=== PATIENT | female | born 1970 | race African-American/Black ===

== ENCOUNTER 2023-06-10 17:10 | Inpatient (IN) | payer OTHER ==
--- NOTE | 2023-06-10 17:18 | ED ---
Chest Pain HPI - General Source: patient, EMS, RN notes reviewed Mode of arrival: EMS Limitations: no limitations - History of Present Illness MD Complaint: chest pain <Ester Hubbard - Last Filed: 06/10/23 17:15> <Hemant Abarca - Last Filed: 06/10/23 22:32> - General Chief Complaint: Chest Pain Stated Complaint: Chest Pain,Headache Time Seen by Provider: 06/10/23 17:15 - History of Present Illness Initial Comments: This is a 53-year-old female who presents to the emergency department for chest pain and headaches. States that this began yesterday and the chest pain is described as sharp. Patient attempted to check into [facility], however per EMS, they would not accept her because she is blind and wheelchair-bound. Patient states that she was discharged from [facility] recently for the chest pain and headaches, and her workup was found to be normal. EMS states that she is essentially homeless and believes that she is making up excuses/complaints due to her situation. (Ester Hubbard) Dictation was produced using [employer] dictation software. please excuse any grammatical, word or spelling errors. Chief Complaint: 53-year-old female presents to the ER for chest pain History of Present Illness: Patient is a 53-year-old female she has history of heart attack, hypertension and alcoholism. She was try to check in at [facility] however they would not accept her because she is blind and having chest pain and shortness of breath. Patient states she is a alcoholic. She has history of hypertension and alcohol abuse. States she is has a history of small heart attack. States that she has chest pain to the substernal left anterior chest radiates down the extremity associated with vomiting. No nausea. Patient denies any pain at this time. She does also report associated shortness of breath. The ROS documented in this emergency department record has been reviewed and confirmed by me. Those systems with pertinent positive or negative responses have been documented in the HPI. All other systems are other negative and/or noncontributory. (Hemant Abarca) - Related Data Allergies Allergy/AdvReac Type Severity Reaction Status Date / Time aspirin Allergy Rash/Hives Verified 06/10/23 17:40 ibuprofen Allergy Rash/Hives Verified 06/10/23 17:40 Review of Systems ROS Other: All systems not noted in ROS Statement are negative. <Ester Hubbard - Last Filed: 06/10/23 17:15> ROS Other: All systems not noted in ROS Statement are negative. <Hemant Abarca - Last Filed: 06/10/23 22:32> ROS Statement: Those systems with pertinent positive or pertinent negative responses have been documented in the HPI. General Exam <Ester Hubbard - Last Filed: 06/10/23 17:15> <Hemant Abarca - Last Filed: 06/10/23 22:32> - General Exam Comments Initial Comments: Visual Physical Exam Vital signs reviewed General: Well-appearing, nontoxic, no acute distress. Head: Normocephalic, atraumatic Eyes: PERRLA, EOMI ENT: Airway patent Chest: Nonlabored breathing Skin: No visual rash, normal skin tone Neuro: Alert and oriented 3 Musculoskeletal: No gross abnormalities (Ester Hubbard) PHYSICAL EXAM: General Impression: Alert and oriented x3, not in acute distress HEENT: Normocephalic atraumatic, extra-ocular movements intact, pupils equal and reactive to light bilaterally, mucous membranes moist. Cardiovascular: Heart regular rate and rhythm Chest: Able to complete full sentences, no retractions, no tachypnea Abdomen: abdomen soft, non-tender, non-distended, no organomegaly Musculoskeletal: Pulses present and equal in all extremities, no peripheral edema Motor: no focal deficits noted Neurological: CN II-XII grossly intact, no focal motor or sensory deficits noted Skin: Intact with no visualized rashes Psych: Normal affect and mood (Hemant Abarca) Course Vital Signs 06/10/23 17:37 Temperature 98.4 F Pulse Rate 97 Respiratory 22 Rate Blood Pressure 160/123 O2 Sat by Pulse 99 Oximetry Chest Pain MDM <Ester Hubbard - Last Filed: 06/10/23 17:15> <Hemant Abarca - Last Filed: 06/10/23 22:32> - MDM I performed the QuickNote portion of this chart. Signed Ester Hubbard PA-C. (Ester Hubbard) Was pt. sent in by a medical professional or institution (JOSSUE Anne, DIRECTOR OF LEARNING, urgent care, hospital, or longterm...) When possible be specific @ -No Did you speak to anyone other than the patient for history (EMS, parent, family, police, friend...)? What history was obtained from this source @ -No Did you review nursing and triage notes (agree or disagree)? Why? @ -I reviewed and agree with nursing and triage notes Were old charts reviewed (outside hosp., previous admission, EMS record, old EKG, old radiological studies, urgent care reports/EKG's, longterm records)? Report findings @ -No old charts were reviewed Differential Diagnosis (chest pain, altered mental status, abdominal pain women, abdominal pain men, vaginal bleeding, musculoskeletal, weakness, fever, dyspnea, syncope, headache, dizziness, GI bleed, back pain, seizure, CVA, palpatations, mental health)? @ -Differential Chest Pain: Stable Angina, Unstable Angina, STEMI, NSTEMI Aortic Dissection, Pneumothorax, Musculoskeletal, Esophageal Spasm GERD, Cholecystitis, Pancreatitis, Zoster, this is not meant to be an all-inclusive list. EKG interpreted by me (3pts min.). @ -My EKG interpretation: Ventricular rate 74, sinus rhythm,. 123, cures 80, QTc 373. No OH prolongation, no QTC prolongation, no ST or T-wave changes noted. Overall, this EKG is unremarkable X-rays interpreted by me (1pt min.). @ -Chest x-ray shows no acute processes CT interpreted by me (1pt min.). @ -None done U/S interpreted by me (1pt. min.). @ -None done What testing was considered but not performed or refused? (CT, X-rays, U/S, labs)? Why? @ -None What meds were considered but not given or refused? Why? @ -None Did you discuss the management of the patient with other professionals (professionals i.e. JOSSUE Anne, DIRECTOR OF LEARNING, lab, RT, psych nurse, rn social work, licensing court magistrate, teacher, child support case officer, supportive employment case manager)? Give summary @ -Case discussed with Dr. Morley for observation admission Was smoking cessation discussed for >3mins.? @ -No Was critical care preformed (if so, how long)? @ -No Were there social determinants of health that impacted care today? How? (Homelessness, low income, unemployed, alcoholism, drug addiction, transportation, low edu. Level, literacy, decrease access to med. care, halfway, rehab)? @ -No Was there de-escalation of care discussed even if they declined (Discuss DNR or withdrawal of care, Hospice)? DNR status @ -No What co-morbidities impacted this encounter? (DM, HTN, Smoking, COPD, CAD, Cancer, CVA, ARF, Chemo, Hep., AIDS, mental health diagnosis, sleep apnea, morbid obesity)? @ -None Was patient admitted / discharged? Hospital course, mention meds given and route, prescriptions, significant lab abnormalities, going to OR and other pertinent info. @ -53-year-old female presents emergency department for atypical chest pain typical features. Vital signs upon arrival are within acceptable limits. EKG is unremarkable for ischemia or infarction. Troponins negative. Rest of labs within acceptable limits. Patient considered high risk due to reported history of heart attacks. Patient agreeable to observation admission. Undiagnosed new problem with uncertain prognosis? @ -No Drug Therapy requiring intensive monitoring for toxicity (Heparin, Nitro, Insulin, Cardizem)? @ -No Were any procedures done? @ -No Diagnosis/symptom? Acute, or Chronic, or Acute on Chronic? Uncomplicated (without systemic symptoms) or Complicated (systemic symptoms)? @ -Chest pain Side effects of treatment? @ -No Exacerbation, Progression, or Severe Exacerbation? @ -No Poses a threat to life or bodily function? How? (Chest pain, [place], [place], pneumonia, PE, COPD, DKA, ARF, appy, cholecystitis, CVA, Diverticulitis, Homicidal, Suicidal, threat to staff... and all critical care pts) @ -yes (Hemant Abarca) Disposition <Ester Hubbard - Last Filed: 06/10/23 17:15> Decision Time: 22:32 <Hemant Abarca - Last Filed: 06/10/23 22:32> Clinical Impression: Chest pain Disposition[facility] Condition: Fair Referrals: Nonstaff,Physician [Primary Care Provider] - 1-2 days
[2023-06-10 19:55] LABS: Basophils % (A) 0 %; Eosinophils # (A) 0.2 k/uL (0-0.7); Eosinophils % (A) 2 %; HCT 45.5 % (34.0-46.0); HGB 14.7 gm/dL (11.4-16.0); Lymphocytes # (A) 1.2 k/uL (1.0-4.8); Lymphocytes % (A) 14 %; MCH 29.9 pg (25.0-35.0); MCHC 32.4 g/dL (31.0-37.0); MCV 92.4 fL (80.0-100.0); Mean Platelet Volume 9.5; Monocytes # (A) 0.4 k/uL (0-1.0); Monocytes % (A) 5 %; Neutrophils # (A) 6.7 k/uL (1.3-7.7); Neutrophils % (A) 77 %; Platelet Count 245 k/uL (150-450); RBC 4.92 m/uL (3.80-5.40); RDW 13.8 % (11.5-15.5); WBC 8.7 k/uL (3.8-10.6)
[2023-06-10 20:08] LABS: INR 0.8 (<1.2); Partial Thromboplastin Time 25.5 sec (22.0-30.0); Prothrombin Time 9.5 sec (10.0-12.5)
[2023-06-10 20:17] LABS: ALT 35 U/L (4-34); AST 25 U/L (14-36); African American GFR (CKD) >90 (>60 ml/min/1.73 sqM); Albumin 4.5 g/dL (3.5-5.0); Alkaline Phosphatase 103 U/L (38-126); Anion Gap 12 mmol/L; Blood Urea Nitrogen 17 mg/dL (7-17); Calcium 9.9 mg/dL (8.4-10.2); Carbon Dioxide 22 mmol/L (22-30); Chloride 105 mmol/L (98-107); Glucose 165 mg/dL (74-99); Magnesium 1.7 mg/dL (1.6-2.3); Non-African American GFR(CKD) 88 (>60 ml/min/1.73 sqM); Potassium 4.4 mmol/L (3.5-5.1); Sodium 139 mmol/L (137-145); Total Bilirubin 0.3 mg/dL (0.2-1.3); Total Protein 7.6 g/dL (6.3-8.2)
[2023-06-10] MEDS ORDERED: MORPHINE SULFATE 4 MG/ML SYRINGE IV STA (22:25)
[2023-06-10] MEDS ORDERED: ONDANSETRON 4 MG/2 ML VIAL IVP STA (22:25)
[2023-06-10] MEDS: ASPIRIN 81 MG PO STA ×2 (23:12→23:26)
[2023-06-10] MEDS ORDERED: diphenhydrAMINE 25 MG CAP PO STA (23:13)
--- NOTE | 2023-06-11 01:07 | XR ---
EXAMINATION TYPE: XR chest 2V DATE OF EXAM: 06/10/2023 9:45 PM CLINICAL INDICATION:Female, 53 years old with history of Chest Pain; [facility] COMPARISON: None TECHNIQUE: XR chest 2V. Frontal and lateral views of the chest.. FINDINGS: Lines/Tubes/Devices: Multiple radiodensities seen are presumed extrinsic to the patient. No indwelling lines are seen. Heart/mediastinum: Heart size is normal. Mildly tortuous aorta with normal mediastinal contours. Pulm onary vascularity: Not increased, Lungs/Pleura: There is no evidence of pleural effusion, focal consolidation, or pneumothorax. Minimal platelike atelectasis in the left mid to lower lung zone. Musculoskeletal: No acute osseous abnormality demonstrated in the limits of the exam. Degenerative c hanges of the spine and shoulders. Other findings: None. IMPRESSION: No acute cardiopulmonary abnormality.
[2023-06-11] MEDS ORDERED: HEPARIN SODIUM 1,000 UN/ML (10ML VL) IV ONE (01:41)
[2023-06-11] MEDS ORDERED: HEPARIN SODIUM 1,000 UN/ML (10ML VL) IV PRN (01:41)
[2023-06-11] MEDS ORDERED: HEPARIN SOD,PORK IN 0.45% NACL 25,000 UNIT in 0.45% NACL 1 250ML.BAG IV SCH (01:45)
[2023-06-11 02:19] LABS: Basophils % (A) 0 %; Eosinophils # (A) 0.2 k/uL (0-0.7); Eosinophils % (A) 2 %; HCT 44.4 % (34.0-46.0); HGB 14.2 gm/dL (11.4-16.0); Lymphocytes % (A) 12 %; MCH 30.3 pg (25.0-35.0); MCHC 32.1 g/dL (31.0-37.0); MCV 94.5 fL (80.0-100.0); Monocytes # (A) 0.4 k/uL (0-1.0); Monocytes % (A) 5 %; Neutrophils # (A) 6.6 k/uL (1.3-7.7); Neutrophils % (A) 80 %; Platelet Count 242 k/uL (150-450); RDW 13.7 % (11.5-15.5); WBC 8.2 k/uL (3.8-10.6)
[2023-06-11] MEDS ORDERED: NITROGLYCERIN SL TABS 0.4 MG TAB SUBLINGUAL STA (02:20)
[2023-06-11] MEDS ORDERED: MORPHINE SULFATE 4 MG/ML SYRINGE IV STA (02:36)
[2023-06-11 02:55] LABS: INR 0.9 (<1.2); Partial Thromboplastin Time 25.2 sec (22.0-30.0); Prothrombin Time 9.8 sec (10.0-12.5)
[2023-06-11] MEDS: NICOTINE 21MG/24HR PATCH TRANSDERM SCH (06:21)
[2023-06-11] MEDS ORDERED: ACETAMINOPHEN TAB 325 MG TAB PO PRN (08:55)
[2023-06-11] MEDS ORDERED: NALOXONE 0.4 MG/ML 1 ML VIAL IVP PRN (08:55)
[2023-06-11] MEDS ORDERED: NICOTINE 21MG/24HR PATCH TRANSDERM SCH (09:00)
[2023-06-11] MEDS ORDERED: ASPIRIN 325 MG TAB PO SCH (09:00)
[2023-06-11] MEDS: SODIUM CHLORIDE 0.9% 1,000 ML IV SCH ×2 (10:32→22:03)
[2023-06-11] MEDS: MORPHINE SULFATE 2 MG/ML SYRINGE IVP PRN ×3 (10:33→21:04)
--- NOTE | 2023-06-11 10:38 | P.CRDCN ---
History of Present Illness History of present illness: HISTORY OF PRESENT ILLNESS: This is a 53-year-old female with a past medical history significant for alcohol abuse. Patient is also legally blind and wheelchair-bound. She is also appar ently homeless. Patient does not follow with a service restorer emergency. We have been asked to see the patient in consultation for chest pain. Patient examined at the bedside in the emergency room. The patient states yesterday she went to [place] and was trying to get admitted for alcohol abuse. However she was not accepted for admission for unknown reason. She was then brought to the hospital via EMS for chest pain. The patient reports she has been having occasional chest pain on and off recently. She reports that she was at [facility] recently for chest pain. She is unsure of what her workup consisted of but she states she did not have a stress test. Patient states that when she has the chest pain there is no radiation of the pain. She states the pain is worse with deep inspiration. Patient's blood pressure was elevated upon admission with a reading of 160/123. She denies any nausea or vomiting. She denies any shortness of breath. She denies any chest pain or pressure at the time of examination. She is a current smoker and smokes 1 pack/day. She also reports alcohol abuse and reports drinking a significant amount of liquor but would not quantify the amount. DIAGNOSTICS: - Initial EKG revealed sinus mechanism with no signs of acute ischemia. Repeat EKG reveals sinus mechanism with inferior lateral T wave inversions. Repeat EKG revealed sinus mechanism with resolution of T wave inversions. Fourth EKG completed revealing sinus mechanism with inferior lateral T wave inversions. - Chest xray negative for acute process - Laboratory data: WBC 8.2. Hemoglobin 14.2. Platelet count 242. Sodium 139. Potassium 4.4. BUN 17. Creatinine 0.79. Magnesium 1.7. Troponin negative x 4. - Current home cardiac medications include lisinopril 10 mg daily REVIEW OF SYSTEMS: At the time of my exam: CONSTITUTIONAL: Denies fever or chills. HEENT: Denies blurred vision, vision changes, or eye pain. Denies hemoptysis CARDIOVASCULAR: Denies chest pain. Denies orthopnea. Denies PND. Denies palpitations RESPIRATORY: Denies shortness of breath. GASTROINTESTINAL: Denies abdominal pain. Denies nausea or vomiting. HEMATOLOGIC: Denies bleeding disorders. GENITOURINARY: Denies any blood in urine. SKIN: Denies pruitis. Denies rash. PHYSICAL EXAM: VITAL SIGNS: Reviewed. GENERAL: Well-developed in no acute distress. HEENT: Head is normocephalic. Pupils are equal, round. Sclerae anicteric. Mucous membranes of the mouth are moist. Neck supple. No JVD or thyromegaly LUNGS: Respirations even and unlabored. Lungs essentially clear to auscultation bilaterally. HEART: Regular rate and rhythm. S1 and S2 heard. ABDOMEN: Soft. Nondistended. Nontender. EXTREMITIES: Normal range of motion. No clubbing or cyanosis. Peripheral pulses intact. No lower extremity edema NEUROLOGIC: Awake and alert. Oriented x 3. ASSESSMENT: Chest pain, troponin negative x 4 History of alcohol abuse Legally blind Chronic debility, patient wheelchair-bound Nicotine dependence History of bipolar disorder History of schizophrenia PLAN: An acute coronary event has been ruled out Obtain 2D echo to assess cardiac structure and function Obtain records from recent hospitalization at [facility] Abstinence from alcohol recommended Smoking cessation encouraged Further recommendations pending patient course Nurse practitioner note has been reviewed by physician. Signing provider agrees with the documented findings, assessment, and plan of care documented by CHASSIS ENGINEER as a scribe. Past Medical History Past Medical History: Hypertension Additional Past Medical History / Comment(s): Blind History of Any Multi-Drug Resistant Organisms: None Reported Past Surgical History: No Surgical Hx Reported Past Psychological History: Bipolar, Schizophrenia Smoking Status: Current every day smoker Past Alcohol Use History: Daily Past Drug Use History: None Reported Medications and Allergies Home Medications Medication Instructions Recorded Confirmed Type Acetaminophen Tab [Tylenol] 5 mg PO QID PRN 06/11/23 06/11/23 History Albuterol Sulfate [Ventolin HFA] 1 - 2 puff INHALATION RT-Q6H PRN 06/11/23 06/11/23 History Buta/APAP/Caf/Cod 33-321-95-30 1 cap PO QID PRN 06/11/23 06/11/23 History [Fioricet w/Cod 13-274-51-30MG] Cyclobenzaprine [Flexeril] 10 mg PO BID PRN 06/11/23 06/11/23 History Ergocalciferol [Vitamin D2 (1250 1,250 mcg PO Q7D 06/11/23 06/11/23 History Mcg = 31193 Iu)] Fluticasone Nasal [place] [Flonase 2 spray EA NOSTRIL DAILY 06/11/23 06/11/23 History Nasal [place]] HYDROcodone/APAP 5-325MG [[place] 1 tab PO BID PRN 06/11/23 06/11/23 History 5-325] lisinopriL [Zestril] 10 mg PO DAILY 06/11/23 06/11/23 History Allergies Allergy/AdvReac Type Severity Reaction Status Date / Time aspirin Allergy Rash/Hives Verified 06/10/23 17:40 ibuprofen Allergy Rash/Hives Verified 06/10/23 17:40 Physical Exam Vitals: Vital Signs Temp Pulse Resp BP Pulse Ox 06/11/23 06:12 72 18 105/72 95 06/11/23 05:17 74 16 102/81 96 06/11/23 04:00 100 16 91/73 97 06/11/23 03:28 83 20 104/83 97 06/11/23 02:30 75 16 113/81 96 06/11/23 01:41 73 20 124/87 97 06/11/23 00:37 87 06/10/23 22:33 76 20 133/90 06/10/23 17:37 98.4 F 97 22 160/123 99 Intake and Output 06/10/23 06/11/23 06/11/23 22:59 06:59 14:59 Other: Weight 90.718 kg Results 06/11/23 01:57 06/10/23 17:41 Cardiac Enzymes 06/10/23 06/10/23 06/10/23 Range/Units 17:41 17:41 23:00 AST 25 (14-36) U/L Troponin I <0.012 <0.012 (0.000-0.034) ng/mL 06/11/23 06/11/23 Range/Units 01:57 03:15 AST (14-36) U/L Troponin I <0.012 <0.012 (0.000-0.034) ng/mL Coagulation 06/10/23 06/11/23 Range/Units 17:41 01:57 PT 9.5 L 9.8 L (10.0-12.5) sec APTT 25.5 25.2 (22.0-30.0) sec CBC 06/10/23 06/11/23 Range/Units 17:41 01:57 WBC 8.7 8.2 (3.8-10.6) k/uL RBC 4.92 4.70 (3.80-5.40) m/uL Hgb 14.7 14.2 (11.4-16.0) gm/dL Hct 45.5 44.4 (34.0-46.0) % Plt Count 245 242 (150-450) k/uL Comprehensive Metabolic Panel 06/10/23 Range/Units 17:41 Sodium 139 (137-145) mmol/L Potassium 4.4 (3.5-5.1) mmol/L Chloride 105 (98-107) mmol/L Carbon Dioxide 22 (22-30) mmol/L BUN 17 (7-17) mg/dL Creatinine 0.79 (0.52-1.04) mg/dL Glucose 165 H (74-99) mg/dL Calcium 9.9 (8.4-10.2) mg/dL AST 25 (14-36) U/L ALT 35 H (4-34) U/L Alkaline Phosphatase 103 (38-126) U/L Total Protein 7.6 (6.3-8.2) g/dL Albumin 4.5 (3.5-5.0) g/dL Current Medications Generic Name Dose Route Start Last Admin Trade Name Freq PRN Reason Stop Dose Admin Acetaminophen 650 mg 06/11/23 08:55 Acetaminophen Tab 325 Mg Tab PO Q6HR PRN Mild Pain or Fever > 100.5 Hydrocodone Bitart/Acetaminophen 1 each 06/11/23 08:55 Hydrocodone/Apap 5-325mg 1 Each Tab PO Q4HR PRN Moderate Pain (Scale 4 to 6) Aspirin 325 mg 06/11/23 09:00 Aspirin 325 Mg Tab PO DAILY TERE Heparin Sodium (Porcine) 0 unit 06/11/23 01:41 Heparin Sodium 1,000 Un/Ml (10ml Vl) IV PER PROTOCOL PRN Low PTT Protocol Heparin Sodium/Sodium Chloride 250 mls @ 10.006 mls/hr 06/11/23 01:45 06/11/23 02:05 25,000 unit/ Sodium Chloride IV 11.03 units/kg/hr .Q24H TERE 10.006 mls/hr Administration Protocol 11.03 UNITS/KG/HR Sodium Chloride 1,000 mls @ 75 mls/hr 06/11/23 09:00 Saline 0.9% IV .[id number] TERE Morphine Sulfate 2 mg 06/11/23 08:56 Morphine Sulfate 2 Mg/Ml Syringe IVP Q4HR PRN Pain/Discomfort Naloxone HCl 0.2 mg 06/11/23 08:55 Naloxone 0.4 Mg/Ml 1 Ml Vial IVP Q2M PRN Opioid Reversal Nicotine 1 patch 06/11/23 06:20 06/11/23 06:21 Nicotine 21mg/24hr Patch TRANSDERM 1 patch DAILY TERE Administration Ondansetron HCl 4 mg 06/11/23 08:55 Ondansetron 4 Mg/2 Ml Vial IVP Q8HR PRN Nausea And Vomiting Intake and Output 06/10/23 06/11/23 06/11/23 22:59 06:59 14:59 Other: Weight 90.718 kg 06/11/23 01:57 06/10/23 17:41
[2023-06-11] MEDS ORDERED: THIAMINE 100 MG/ML 2 ML VIAL IM STA (12:45)
[2023-06-11] MEDS ORDERED: chlordiazePOXIDE 25 MG CAP PO PRN (12:45)
[2023-06-11] MEDS ORDERED: LORazepam 1 MG TAB PO PRN ×2 (12:45)
[2023-06-11] MEDS ORDERED: ALBUTEROL NEBULIZED 2.5 MG/3 ML INHALATION PRN (12:48)
[2023-06-11] MEDS ORDERED: BUTA/APAP/CAF/COD 50-325-40-30 CAP PO PRN (12:48)
[2023-06-11] MEDS ORDERED: CYCLOBENZAPRINE 10 MG TAB PO PRN (12:48)
--- NOTE | 2023-06-11 12:49 | P.HPIM ---
History of Present Illness H&P Date: 06/11/23 Chief Complaint: Chest pain * 53-year-old patient with past medical history significant for hypertension, controlled emergency department with complaints of chest pain. Patient has history of alcohol use and was trying to get checked in [facility] however patient was not excepted there. Upon admission patient mentioned that she had been recently at another hospital with complaints of chest pain and had a workup done which was normal. Per chart review, patient essentially homeless. * Patient does have history of alcohol use patient states she had last drink about 48 hours prior to presentation * Workup initiated ER included EKG which showed sinus rhythm, nonspecific ST segment changes were noted * Blood work obtained in ER included CBC which was essentially normal, INR 0.8 * Serum chemistry obtained showed sodium of 139 potassium 4.4 BUN 17 creatinine 0.79 glucose 165 * ALT of 35, AST of 25 troponin within normal limits * Patient to be admitted with consultation for cardiology to rule out ACS REVIEW OF SYSTEMS: Chest pain CONSTITUTIONAL: No fever, no malaise, no fatigue. HEENT: No recent visual problems or hearing problems. Denied any sore throat. CARDIOVASCULAR: No chest pain, orthopnea, PND, no palpitations, no syncope. PULMONARY: No shortness of breath, no cough, no hemoptysis. GASTROINTESTINAL: No diarrhea, no nausea, no vomiting, no abdominal pain. NEUROLOGICAL: No headaches, no weakness, no numbness. HEMATOLOGICAL: Denies any bleeding or petechiae. GENITOURINARY: Denies any burning micturition, frequency, or urgency. MUSCULOSKELETAL/RHEUMATOLOGICAL: Denies any joint pain, swelling, or any muscle pain. ENDOCRINE: Denies any polyuria or polydipsia. PHYSICAL EXAMINATION: GENERAL: The patient is alert and oriented x3, not in any acute distress. Well developed, well nourished. HEENT: legally blind No scleral icterus. CARDIOVASCULAR: S1 and S2 present. No murmurs, rubs, or gallops. PULMONARY: Chest is clear to auscultation, no wheezing or crackles. ABDOMEN: Soft, nontender, nondistended, normoactive bowel sounds. No palpable organomegaly. MUSCULOSKELETAL: No joint swelling or deformity. EXTREMITIES: No cyanosis, clubbing, or pedal edema. NEUROLOGICAL: Gross neurological examination did not reveal any focal deficits. SKIN: No rashes. Past Medical History Past Medical History: Hypertension Additional Past Medical History / Comment(s): Blind History of Any Multi-Drug Resistant Organisms: None Reported Past Surgical History: No Surgical Hx Reported Past Psychological History: Bipolar, Schizophrenia Smoking Status: Current every day smoker Past Alcohol Use History: Daily Past Drug Use History: None Reported Medications and Allergies Home Medications Medication Instructions Recorded Confirmed Type Acetaminophen Tab [Tylenol] 5 mg PO QID PRN 06/11/23 06/11/23 History Albuterol Sulfate [Ventolin HFA] 1 - 2 puff INHALATION RT-Q6H PRN 06/11/23 06/11/23 History Buta/APAP/Caf/Cod 54-233-86-30 1 cap PO QID PRN 06/11/23 06/11/23 History [Fioricet w/Cod 56-294-31-30MG] Cyclobenzaprine [Flexeril] 10 mg PO BID PRN 06/11/23 06/11/23 History Ergocalciferol [Vitamin D2 (1250 1,250 mcg PO Q7D 06/11/23 06/11/23 History Mcg = 62748 Iu)] Fluticasone Nasal [place] [Flonase 2 spray EA NOSTRIL DAILY 06/11/23 06/11/23 History Nasal [place]] HYDROcodone/APAP 5-325MG [[place] 1 tab PO BID PRN 06/11/23 06/11/23 History 5-325] lisinopriL [Zestril] 10 mg PO DAILY 06/11/23 06/11/23 History Allergies Allergy/AdvReac Type Severity Reaction Status Date / Time aspirin Allergy Rash/Hives Verified 06/10/23 17:40 ibuprofen Allergy Rash/Hives Verified 06/10/23 17:40 Physical Exam Vitals: Vital Signs Temp Pulse Resp BP Pulse Ox 06/11/23 06:12 72 18 105/72 95 06/11/23 05:17 74 16 102/81 96 06/11/23 04:00 100 16 91/73 97 06/11/23 03:28 83 20 104/83 97 06/11/23 02:30 75 16 113/81 96 06/11/23 01:41 73 20 124/87 97 06/11/23 00:37 87 06/10/23 22:33 76 20 133/90 06/10/23 17:37 98.4 F 97 22 160/123 99 Intake and Output 06/10/23 06/11/23 06/11/23 22:59 06:59 14:59 Other: Weight 90.718 kg Results CBC & Chem 7: 06/11/23 01:57 06/10/23 17:41 Labs: Abnormal Lab Results - Last 24 Hours (Table) 06/10/23 06/10/23 06/11/23 Range/Units 17:41 17:41 01:57 PT 9.5 L 9.8 L (10.0-12.5) sec Glucose 165 H (74-99) mg/dL ALT 35 H (4-34) U/L Assessment and Plan Assessment: Assessment and plan * Chest pain rule out acute coronary syndrome * Hypertension * Alcohol use disorder * History of bipolar disorder * Legally blind * In regards to chest pain, serial troponins ordered, sublingual nitroglycerin for chest pain, cardiology consulted * In regards to history of hypertension, continue lisinopril * In regards to history of alcohol use disorder continue withdrawal protocol Ativan as needed * Appreciate input from cardiology, social work/case management consulted * CODE STATUS is full code Time with Patient: Greater than 30
[2023-06-11] MEDS: MULTIVITAMINS, THERA 1 EACH TAB PO SCH (13:43)
[2023-06-11 13:44] LABS: Chol/HDL Ratio 3.42 Ratio; LDL Cholesterol,Calculated 72.5 mg/dL (0.0-131.0)
[2023-06-11] MEDS: ONDANSETRON 4 MG/2 ML VIAL IVP PRN (18:46)
[2023-06-11] MEDS ORDERED: ATORVASTATIN 20 MG TAB PO SCH (21:00)
[2023-06-12] MEDS: MORPHINE SULFATE 2 MG/ML SYRINGE IVP PRN ×5 (02:25→21:33)
[2023-06-12] MEDS: MULTIVITAMINS, THERA 1 EACH TAB PO SCH (08:02)
[2023-06-12] MEDS: NICOTINE 21MG/24HR PATCH TRANSDERM SCH (08:03)
[2023-06-12] MEDS: lisinopriL 10 MG TAB PO SCH (08:03)
[2023-06-12] MEDS: ENOXAPARIN 40 MG/0.4 ML SYRINGE SQ SCH (08:03)
[2023-06-12] MEDS: FLUTICASONE 50MCG/SPRAY NASAL 16GM EA NOSTRIL SCH (08:03)
[2023-06-12] MEDS: THIAMINE 100 MG TAB PO SCH (08:03)
--- NOTE | 2023-06-12 09:05 | CA ---
Transthoracic Echo Report Name: Vonnie Chand Age: 53 Gender: F : 1970 Exam Date: 06/11/2023 11:18 Exam Location: [facility] Ht (in): 63 Wt (lb): 200 Ordering Physician: Letitia Bee Attending/Referring Phys: [id number], Cristal Case Investigator Palak Phillip RDCS Procedure CPT: Indications: LV function Cardiac Hx: Technical Quality: Fair Contrast 1: Total Dose (mL): Contrast 2: Total Dose (mL): MEASUREMENTS (Male / Female) Normal Values 2D ECHO LV Diastolic Diameter PLAX 5.0 cm 4.2 - 5.9 / 3.9 - 5.3 cm LV Systolic Diameter PLAX 3.5 cm IVS Diastolic Thickness 1.1 cm 0.6 - 1.0 / 0.6 - 0.9 cm LVPW Diastolic Thickness 1.1 cm 0.6 - 1.0 / 0.6 - 0.9 cm LV Relative Wall Thickness 0.5 RV Internal Dim ED PLAX 3.0 cm LA Systolic Diameter LX 2.8 cm 3.0 - 4.0 / 2.7 - 3.8 cm LV Diastolic Volume MOD 4C 106.6 cm??? LV Systolic Volume MOD 4C 57.1 cm??? LV Ejection Fraction MOD 4C 46.4 % LV Cardiac Index MOD 4C 1762.6 cm???/min???m??? LV Diastolic Length 4C 8.0 cm LV Systolic Length 4C 6.9 cm LV Diastolic Volume MOD 2C 82.1 cm??? LV Systolic Volume MOD 2C 42.7 cm??? LV Ejection Fraction MOD 2C 48.0 % LV Cardiac Index MOD 2C 1404.9 cm???/min???m??? LV Diastolic Length 2C 7.7 cm LV Systolic Length 2C 6.4 cm LA Volume 37.0 cm??? 18 - 58 / 22 - 52 cm??? LA Volume Index 18.0 cm???/m??? 16 - 28 cm???/m??? M-MODE Aortic Root Diameter MM 3.0 cm MV E Point Septal Separation 0.8 cm AV Cusp Separation MM 2.1 cm DOPPLER AV Peak Velocity 157.1 cm/s AV Peak Gradient 9.9 mmHg MV Area PHT 2.3 cm??? Mitral E Point Velocity 73.9 cm/s Mitral A Point Velocity 86.3 cm/s Mitral E to A Ratio 0.9 MV Deceleration Time 329.8 ms MV E' Velocity 6.3 cm/s Mitral E to MV E' Ratio 11.8 TR Peak Velocity 265.4 cm/s TR Peak Gradient 28.2 mmHg Right Ventricular Systolic Press 32.4 mmHg FINDINGS Left Ventricle Left ventricular ejection fraction is estimated at 50-55 %. Left ventricular cavity size normal. Moderate concentric LVH. No obvious regional wall motion abnormality Right Ventricle Normal right ventricular size. Right ventricular systolic pressure within normal limits. Right Atrium Normal right atrial size. Left Atrium Normal left atrial size. Mitral Valve Structurally normal mitral valve. No mitral stenosis, regurgitation or prolapse. Aortic Valve Trileaflet aortic valve. No aortic valve stenosis or regurgitation. Tricuspid Valve Structurally normal tricuspid valve. Mild tricuspid regurgitation. Pulmonic Valve Pulmonic valve not well visualized. No pulmonic regurgitation. Pericardium No pericardial effusion. Aorta Normal size aortic root and proximal ascending aorta. CONCLUSIONS Left ventricular ejection fraction is estimated at 50-55 %. Moderate concentric LVH. No obvious regional wall motion abnormality. Right ventricular systolic pressure within normal limits. No significant valvular dysfunction No pericardial effusion Previewed by: Dr Philip Ratliff (Electronically Signed) Final Date: 12 June 2023 09:04
[2023-06-12] MEDS: ASPIRIN 81 MG PO SCH (10:05)
--- NOTE | 2023-06-12 10:10 | P.PN ---
Subjective HISTORY OF PRESENT ILLNESS: This is a 53-year-old female with a past medical history significant for alcohol abuse. Patient is also legally blind and wheelchair-bound. She is also apparently homeless. Patient does not follow with a ekg monitor. We have been asked to see the patient in consultation for chest pain. Patient examined at the bedside in the emergency room. The patient states yesterday she went to [place] and was trying to get admitted for alcohol abuse. However she was not accepted for admission for unknown reason. She was then brought to the hospital via EMS for chest pain. The patient reports she has been having occasional chest pain on and off recently. She reports that she was at [facility] recently for chest pain. She is unsure of what her workup consisted of but she states she did not have a stress test. Patient states that when she has the chest pain there is no radiation of the pain. She states the pain is worse with deep inspiration. Patient's blood pressure was elevated upon admission with a reading of 160/123. She denies any nausea or vomiting. She denies any shortness of breath. She denies any chest pain or pressure at the time of examination. She is a current smoker and smokes 1 pack/day. She also reports alcohol abuse and reports drinking a significant amount of liquor but would not quantify the amount. DIAGNOSTICS: - Initial EKG revealed sinus mechanism with no signs of acute ischemia. Repeat EKG reveals sinus mechanism with inferior lateral T wave inversions. Repeat EKG revealed sinus mechanism with resolution of T wave inversions. Fourth EKG completed revealing sinus mechanism with inferior lateral T wave inversions. - Chest xray negative for acute process - Laboratory data: WBC 8.2. Hemoglobin 14.2. Platelet count 242. Sodium 139. Potassium 4.4. BUN 17. Creatinine 0.79. Magnesium 1.7. Troponin negative x 4. - Current home cardiac medications include lisinopril 10 mg daily June 12, 2023 Patient examined this morning at the bedside. Patient currently denies shortness of breath. She reports chest discomfort although improved from . She states the pain is worse with deep inspiration. She reports pain on both sides of her chest but states it is worse on the left side and feels like someone is poking her. She states the pain is worse when she lays down and improves when she sits up. Echocardiogram performed revealing EF 50 to 55%, moderate concentric LVH, no obvious regional wall motion abnormality, no significant valvular dysfunction and no pericardial effusion. PHYSICAL EXAM: VITAL SIGNS: Reviewed. GENERAL: Well-developed in no acute distress. HEENT: Head is normocephalic. Pupils are equal, round. Sclerae anicteric. Mucous membranes of the mouth are moist. Neck supple. No JVD or thyromegaly LUNGS: Respirations even and unlabored. Lungs essentially clear to auscultation bilaterally. HEART: Regular rate and rhythm. S1 and S2 heard. ABDOMEN: Soft. Nondistended. Nontender. EXTREMITIES: Normal range of motion. No clubbing or cyanosis. Peripheral pulses intact. No lower extremity edema NEUROLOGIC: Awake and alert. Oriented x 3. ASSESSMENT: Chest pain, troponin negative x 4 History of alcohol abuse Legally blind Chronic debility, patient wheelchair-bound Nicotine dependence History of bipolar disorder History of schizophrenia PLAN: An acute coronary event has been ruled out [place] [facility] [place] morning Obtain CRP and ESR Possible dobutamine stress test tomorrow pending review of [place] [facility] [place] Abstinence from alcohol recommended Smoking cessation encouraged Further recommendations pending patient course Nurse practitioner note has been reviewed by physician. Signing provider agrees with the documented findings, assessment, and plan of care documented by BRIDAL STYLIST SALES CONSULTANT as a scribe. Objective - Vital Signs Vital signs: Vital Signs Temp 97.4 F L 06/12/23 07:00 Pulse 62 06/12/23 07:00 Resp 21 06/12/23 07:00 BP 121/83 06/12/23 07:00 Pulse Ox 100 06/12/23 07:00 FiO2 Intake & Output 06/11/23 06/12/23 06/12/23 18:59 06:59 18:59 Weight 90.718 kg Other: Voiding Method Toilet # Voids 2 - Labs CBC & Chem 7: 06/11/23 01:57 06/10/23 17:41 Labs: Abnormal Lab Results - Last 24 Hours (Table) 06/11/23 Range/Units 08:40 Triglycerides 232.00 H (0.00-149.00) mg/dL VLDL Cholesterol, Calc 46.40 H (5.00-40.00) mg/dL
[2023-06-12] MEDS: ONDANSETRON 4 MG/2 ML VIAL IVP PRN ×2 (12:19→21:33)
--- NOTE | 2023-06-12 12:46 | P.PN ---
Subjective Progress Note Date: 06/12/23 * 53-year-old patient with past medical history significant for hypertension, controlled emergency department with complaints of chest pain. Patient has history of alcohol use and was trying to get checked in [place] however patient was not excepted there. Upon admission patient mentioned that she had been recently at another hospital with complaints of chest pain and had a workup done which was normal. Per chart review, patient essentially homeless. * Patient does have history of alcohol use patient states she had last drink about 48 hours prior to presentation * Workup initiated ER included EKG which showed sinus rhythm, nonspecific ST segment changes were noted * Blood work obtained in ER included CBC which was essentially normal, INR 0.8 * Serum chemistry obtained showed sodium of 139 potassium 4.4 BUN 17 creatinine 0.79 glucose 165 * ALT of 35, AST of 25 troponin within normal limits * Patient to be admitted with consultation for cardiology to rule out ACS * 06/12/2023: Patient seen and evaluated bedside, patient remains chest pain- free, cardiology evaluated patient planning stress test, CRP 2.2, significant dyslipidemia noted troponin within normal limits REVIEW OF SYSTEMS: Chest pain resolved CONSTITUTIONAL: No fever, no malaise, no fatigue. HEENT: No recent visual problems or hearing problems. Denied any sore throat. CARDIOVASCULAR: No chest pain, orthopnea, PND, no palpitations, no syncope. PULMONARY: No shortness of breath, no cough, no hemoptysis. GASTROINTESTINAL: No diarrhea, no nausea, no vomiting, no abdominal pain. NEUROLOGICAL: No headaches, no weakness, no numbness. HEMATOLOGICAL: Denies any bleeding or petechiae. GENITOURINARY: Denies any burning micturition, frequency, or urgency. MUSCULOSKELETAL/RHEUMATOLOGICAL: Denies any joint pain, swelling, or any muscle pain. ENDOCRINE: Denies any polyuria or polydipsia. PHYSICAL EXAMINATION: GENERAL: The patient is alert and oriented x3, not in any acute distress. Well developed, well nourished. HEENT: legally blind No scleral icterus. CARDIOVASCULAR: S1 and S2 present. No murmurs, rubs, or gallops. PULMONARY: Chest is clear to auscultation, no wheezing or crackles. ABDOMEN: Soft, nontender, nondistended, normoactive bowel sounds. No palpable organomegaly. MUSCULOSKELETAL: No joint swelling or deformity. EXTREMITIES: No cyanosis, clubbing, or pedal edema. NEUROLOGICAL: Gross neurological examination did not reveal any focal deficits. SKIN: No rashes. Objective - Vital Signs Vital signs: Vital Signs Temp 97.4 F L 06/12/23 07:00 Pulse 62 06/12/23 07:00 Resp 21 06/12/23 07:00 BP 121/83 06/12/23 07:00 Pulse Ox 100 06/12/23 07:00 FiO2 Intake & Output 06/11/23 06/12/23 06/12/23 18:59 06:59 18:59 Intake Total 618 Balance 618 Weight 90.718 kg Intake: Oral 618 Other: Voiding Method Toilet # Voids 2 - Labs CBC & Chem 7: 06/11/23 01:57 06/10/23 17:41 Labs: Abnormal Lab Results - Last 24 Hours (Table) 06/11/23 06/12/23 Range/Units 08:40 09:18 C-Reactive Protein 2.2 H (<1.0) mg/dL Triglycerides 232.00 H (0.00-149.00) mg/dL VLDL Cholesterol, Calc 46.40 H (5.00-40.00) mg/dL Assessment and Plan Assessment: Assessment and plan * Chest pain rule out acute coronary syndrome * Hypertension * Alcohol use disorder * History of bipolar disorder * Legally blind * In regards to chest pain, serial troponins negative, sublingual nitroglycerin for chest pain, cardiology consulted * In regards to history of hypertension, continue lisinopril * In regards to history of alcohol use disorder continue withdrawal protocol Ativan as needed * Appreciate input from cardiology, social work/case management consulted * CODE STATUS is full code
[2023-06-12] MEDS: SODIUM CHLORIDE 0.9% 1,000 ML IV SCH (14:05)
[2023-06-12] MEDS: ATORVASTATIN 40 MG TAB PO SCH (20:25)
[2023-06-13] MEDS: MORPHINE SULFATE 2 MG/ML SYRINGE IVP PRN ×5 (01:53→20:33)
[2023-06-13] MEDS ORDERED: DOBUTamine DRIP for NUC MED 500 MG in DEXTROSE/WATER 1 250ML.BAG IV PRN (06:00)
[2023-06-13] MEDS: SODIUM CHLORIDE 0.9% 1,000 ML IV SCH ×2 (06:01→16:40)
[2023-06-13] MEDS: HYDROcodone/APAP 5-325MG 1 EACH TAB PO PRN ×2 (07:50→16:44)
[2023-06-13] MEDS: ONDANSETRON 4 MG/2 ML VIAL IVP PRN (07:51)
[2023-06-13] MEDS ORDERED: DOBUTamine DRIP for NUC MED 500 MG/250 ML BAG IV ONE (08:00)
[2023-06-13 08:56] LABS: Blood Urea Nitrogen 15.3 mg/dL (9.0-27.0); Calcium 9.2 mg/dL (8.7-10.3); Carbon Dioxide 27.1 mmol/L (21.6-31.8); Chloride 105 mmol/L (96-109); Glucose 93 mg/dL (70-110); Potassium 4.5 mmol/L (3.5-5.5); Sodium 140 mmol/L (135-145)
[2023-06-13] MEDS: FLUTICASONE 50MCG/SPRAY NASAL 16GM EA NOSTRIL SCH (08:57)
[2023-06-13] MEDS: lisinopriL 10 MG TAB PO SCH (08:58)
[2023-06-13] MEDS: THIAMINE 100 MG TAB PO SCH (08:58)
[2023-06-13] MEDS: ASPIRIN 81 MG PO SCH (08:58)
[2023-06-13] MEDS: MULTIVITAMINS, THERA 1 EACH TAB PO SCH (08:58)
[2023-06-13] MEDS: NICOTINE 21MG/24HR PATCH TRANSDERM SCH (08:58)
[2023-06-13] MEDS: ENOXAPARIN 40 MG/0.4 ML SYRINGE SQ SCH (09:47)
--- NOTE | 2023-06-13 10:48 | P.PN ---
Subjective HISTORY OF PRESENT ILLNESS: This is a 53-year-old female with a past medical history significant for alcohol abuse. Patient is also legally blind and wheelchair-bound. She is also apparently homeless. Patient does not follow with a director of manufacturing operations. We have been asked to see the patient in consultation for chest pain. Patient examined at the bedside in the emergency room. The patient states yesterday she went to [place] and was trying to get admitted for alcohol abuse. However she was not accepted for admission for unknown reason. She was then brought to the hospital via EMS for chest pain. The patient reports she has been having occasional chest pain on and off recently. She reports that she was at [facility] recently for chest pain. She is unsure of what her workup consisted of but she states she did not have a stress test. Patient states that when she has the chest pain there is no radiation of the pain. She states the pain is worse with deep inspiration. Patient's blood pressure was elevated upon admission with a reading of 160/123. She denies any nausea or vomiting. She denies any shortness of breath. She denies any chest pain or pressure at the time of examination. She is a current smoker and smokes 1 pack/day. She also reports alcohol abuse and reports drinking a significant amount of liquor but would not quantify the amount. DIAGNOSTICS: - Initial EKG revealed sinus mechanism with no signs of acute ischemia. Repeat EKG reveals sinus mechanism with inferior lateral T wave inversions. Repeat EKG revealed sinus mechanism with resolution of T wave inversions. Fourth EKG completed revealing sinus mechanism with inferior lateral T wave inversions. - Chest xray negative for acute process - Laboratory data: WBC 8.2. Hemoglobin 14.2. Platelet count 242. Sodium 139. Potassium 4.4. BUN 17. Creatinine 0.79. Magnesium 1.7. Troponin negative x 4. - Current home cardiac medications include lisinopril 10 mg daily June 12, 2023 Patient examined this morning at the bedside. Patient currently denies shortness of breath. She reports chest discomfort although improved from . She states the pain is worse with deep inspiration. She reports pain on both sides of her chest but states it is worse on the left side and feels like someone is poking her. She states the pain is worse when she lays down and improves when she sits up. Echocardiogram performed revealing EF 50 to 55%, moderate concentric LVH, no obvious regional wall motion abnormality, no significant valvular dysfunction and no pericardial effusion. June 13, 2023 Patient examined this morning in the stress lab. Patient states that she feels " like crap" today. She reports generalized pain, chest discomfort, and a headache. She also reports feeling nauseated. Blood pressure this morning 1 39/81. ESR 14. CRP 2.2. No records were obtained from [facility] [place] as when staff called the facility there was no record of the patient on file. PHYSICAL EXAM: VITAL SIGNS: Reviewed. GENERAL: Well-developed in no acute distress. HEENT: Head is normocephalic. Pupils are equal, round. Sclerae anicteric. Mucous membranes of the mouth are moist. Neck supple. No JVD or thyromegaly LUNGS: Respirations even and unlabored. Lungs essentially clear to auscultation bilaterally. HEART: Regular rate and rhythm. S1 and S2 heard. ABDOMEN: Soft. Nondistended. Nontender. EXTREMITIES: Normal range of motion. No clubbing or cyanosis. Peripheral pulses intact. No lower extremity edema NEUROLOGIC: Awake and alert. Oriented x 3. ASSESSMENT: Chest pain, troponin negative x 4 History of alcohol abuse Legally blind Chronic debility, patient wheelchair-bound Nicotine dependence History of bipolar disorder History of schizophrenia PLAN: Continue current cardiac medications Abstinence from alcohol recommended Smoking cessation encouraged Patient to undergo dobutamine stress echo today If negative, the patient may be discharged home from a cardiac standpoint Nurse practitioner note has been reviewed by physician. Signing provider agrees with the documented findings, assessment, and plan of care documented by AIR CONDITIONING SPECIALIST as a scribe. Objective - Vital Signs Vital signs: Vital Signs Temp 98.0 F 06/13/23 07:00 Pulse 74 06/13/23 07:00 Resp 16 06/13/23 07:00 BP 139/81 06/13/23 07:00 Pulse Ox 100 06/13/23 07:00 FiO2 Intake & Output 06/12/23 06/13/23 06/13/23 18:59 06:59 18:59 Intake Total 736 650 Balance 736 650 Weight 84.5 kg Intake: Oral 736 650 Other: Voiding Method Toilet Toilet # Voids 3 3 1 - Labs CBC & Chem 7: 06/11/23 01:57 06/13/23 03:11 Labs: Abnormal Lab Results - Last 24 Hours (Table) 06/12/23 Range/Units 09:18 C-Reactive Protein 2.2 H (<1.0) mg/dL
[2023-06-13] MEDS ORDERED: PROCHLORPERAZINE INJ 10 MG/2 ML VIAL IVP STA (11:56)
--- NOTE | 2023-06-13 12:46 | CA ---
Dobutamine Stress Echocardiogram Report Vonnie Chand Age: 53 Gender: F : 1970 Exam Date: 06/13/2023 11:01 Exam Location: [facility] Ordering Physician: Letitia Bee Referring Physician: ELIEZER,, Manager Wind: Dragan Spencer Technologist: Palak Phillip RDCS Ht (in): 63 Wt (lb): 200 Procedure CPT: Indication: CP ICD-9 Codes: Rhythm: Patient History: CHEST PAIN, DIFFICULTY IN BREATHING, PALPITATIONS, HTN, ELEVATED CHOLESTEROL LEVELS, CURRENT SMOKER 0.5 PPD X 35 YEARS, PRIOR PR, COPD, ASTHMA Cardiac Medications: Medications in past 24 hours: Contrast: Total Dose (mL): Stress Results Protocol: Dobutamine Peak Dose (???g/kg/min): 40 Duration (min:sec): Atropine:(mg) Target HR: 144 Double Product: 51414 Resting HR: 63 Resting BP: 104 / 69 Peak HR: 124 Peak BP: 168 / 70 Max Predicted HR: 169 73 % Max Predicted HR Stress Summary: BP Response: Reason for Termination: DIRECTED PER WAGON DRILLER Cardiac Symptoms: NAUSEA AND VOMITING ECG Analysis Resting EKG: Normal sinus rhythm, normal axis, heart rate 64 beats a minute Stress EKG: No significant ST-T wave changes diagnostic for ischemia by ST segment analysis Arrhythmia: There are no sustained arrhythmias ectopic beats Echo Analysis Base Echo Analysis: Normal segmental and global systolic function. No obvious regional wall motion abnormality Low Echo Anaylsis: No regional wall motion abnormality at your dobutamine infusion rate. Normal augmentation and global and segmental systolic function Peak Echo Analysis: No regional wall motion abnormality at peak dobutamine infusion rate. Normal augmentation and global and segmental systolic function Recovery Echo: No regional wall motion abnormality due to recovery MEASUREMENTS (Male/Female) Normal Values CONCLUSIONS Nonischemic ECG and echocardiographic response to dobutamine infusion Normal hemodynamic response to dobutamine infusion Nausea and vomiting with dobutamine infusion. No chest pain Overall normal dobutamine echo stress test Dr Philip Ratliff (Electronically Signed) Final Date: 13 June 2023 12:45
--- NOTE | 2023-06-13 14:11 | P.DS ---
Providers Date of admission: 06/10/23 22:27 Expected date of discharge: 06/13/23 Attending physician: Melchor Arita Primary care physician: Stated None Hospital Course: * 53-year-old patient with past medical history significant for hypertension, controlled emergency department with complaints of chest pain. Patient has history of alcohol use and was trying to get checked in [place] however patient was not excepted there. Upon admission patient mentioned that she had been recently at another hospital with complaints of chest pain and had a workup done which was normal. Per chart review, patient essentially homeless. * Patient does have history of alcohol use patient states she had last drink about 48 hours prior to presentation * Workup initiated ER included EKG which showed sinus rhythm, nonspecific ST segment changes were noted * Blood work obtained in ER included CBC which was essentially normal, INR 0.8 * Serum chemistry obtained showed sodium of 139 potassium 4.4 BUN 17 creatinine 0.79 glucose 165 * ALT of 35, AST of 25 troponin within normal limits * Patient to be admitted with consultation for cardiology to rule out ACS * 06/12/2023: Patient seen and evaluated bedside, patient remains chest pain- free, cardiology evaluated patient planning stress test, CRP 2.2, significant dyslipidemia noted troponin within normal limits * 06/13/2023: Patient seen and evaluated bedside, stress test completed patient cleared for discharge by cardiology. Patient had episode of nausea given Zofran. X-ray to be completed as well. construction operations manager coordinating discharge planning. For safe planning patient need [facility]. REVIEW OF SYSTEMS: Chest pain resolved CONSTITUTIONAL: No fever, no malaise, no fatigue. HEENT: No recent visual problems or hearing problems. Denied any sore throat. CARDIOVASCULAR: No chest pain, orthopnea, PND, no palpitations, no syncope. PULMONARY: No shortness of breath, no cough, no hemoptysis. GASTROINTESTINAL: No diarrhea, no nausea, no vomiting, no abdominal pain. NEUROLOGICAL: No headaches, no weakness, no numbness. HEMATOLOGICAL: Denies any bleeding or petechiae. GENITOURINARY: Denies any burning micturition, frequency, or urgency. MUSCULOSKELETAL/RHEUMATOLOGICAL: Denies any joint pain, swelling, or any muscle pain. ENDOCRINE: Denies any polyuria or polydipsia. PHYSICAL EXAMINATION: GENERAL: The patient is alert and oriented x3, not in any acute distress. Well developed, well nourished. HEENT: legally blind No scleral icterus. CARDIOVASCULAR: S1 and S2 present. No murmurs, rubs, or gallops. PULMONARY: Chest is clear to auscultation, no wheezing or crackles. ABDOMEN: Soft, nontender, nondistended, normoactive bowel sounds. No palpable organomegaly. MUSCULOSKELETAL: No joint swelling or deformity. EXTREMITIES: No cyanosis, clubbing, or pedal edema. NEUROLOGICAL: Gross neurological examination did not reveal any focal deficits. SKIN: No rashes. Assessment and plan * Chest pain ruled out acute coronary syndrome * Hypertension * Alcohol use disorder * History of bipolar disorder * Legally blind * In regards to chest pain, serial troponins negative, stress test negative * In regards to history of hypertension, continue lisinopril * In regards to history of alcohol use disorder, was treated for withdrawal while inpatient counseled * Appreciate input from cardiology, social work/case management consulted * Discharged to custodial/safe facility patient is homeless Patient Condition at Discharge: Fair Plan - Discharge Summary New Discharge Prescriptions: Continue Cyclobenzaprine [Flexeril] 10 mg PO BID PRN PRN Reason: Muscle Spasm Albuterol Sulfate [Ventolin HFA] 1 - 2 puff INHALATION RT-Q6H PRN PRN Reason: Shortness Of Breath Acetaminophen Tab [Tylenol] 5 mg PO QID PRN PRN Reason: Pain lisinopriL [Zestril] 10 mg PO DAILY Fluticasone Nasal [place] [Flonase Nasal [place]] 2 spray EA NOSTRIL DAILY HYDROcodone/APAP 5-325MG [[place] 5-325] 1 tab PO BID PRN PRN Reason: Pain Ergocalciferol [Vitamin D2 (1250 Mcg = 50433 Iu)] 1,250 mcg PO Q7D [place]/APAP/Caf/Cod 60-048-54-30 [Fioricet w/Cod 63-357-69-30MG] 1 cap PO QID PRN PRN Reason: Migraine Headache Discharge Medication List Acetaminophen Tab [Tylenol] 5 mg PO QID PRN 06/11/23 [History] Albuterol Sulfate [Ventolin HFA] 1 - 2 puff INHALATION RT-Q6H PRN 06/11/23 [History] [place]/APAP/Caf/Cod [id number] [Fioricet w/Cod 18-019-19-30MG] 1 cap PO QID PRN 06/11/23 [History] Cyclobenzaprine [Flexeril] 10 mg PO BID PRN 06/11/23 [History] Ergocalciferol [Vitamin D2 (1250 Mcg = 84178 Iu)] 1,250 mcg PO Q7D 06/11/23 [History] Fluticasone Nasal [place] [Flonase Nasal [place]] 2 spray EA NOSTRIL DAILY 06/11/23 [History] HYDROcodone/APAP 5-325MG [[place] 5-325] 1 tab PO BID PRN 06/11/23 [History] lisinopriL [Zestril] 10 mg PO DAILY 06/11/23 [History] Follow up Appointment(s)/Referral(s): Nonstaff,Physician [REFERRING] - 1-2 days Discharge Disposition: HOME SELF-CARE
--- NOTE | 2023-06-13 19:50 | XR ---
EXAMINATION TYPE: XR KUB portable DATE OF EXAM: 06/13/2023 CLINICAL DATA: 53-year-old female distention, rule out bowel obstruction, [facility] COMPARISON: None FINDINGS: Supine imaging limited for assessment of free air. Visualized lung bases are clear. No dilated small bowel. Scattered mild to moderate stool throughout the colon. Air and stool extends distally to the rectum. Multiple pelvic phleboliths. Moderate degenerative change of the hips. IMPRESSION: Nonobstructive bowel gas pattern. Mild to moderate stool burden.
[2023-06-13] MEDS: ATORVASTATIN 40 MG TAB PO SCH (20:33)
[2023-06-14] MEDS: MORPHINE SULFATE 2 MG/ML SYRINGE IVP PRN ×5 (00:17→21:51)
[2023-06-14] MEDS: HYDROcodone/APAP 5-325MG 1 EACH TAB PO PRN ×4 (03:00→19:59)
[2023-06-14] MEDS: SODIUM CHLORIDE 0.9% 1,000 ML IV SCH ×2 (04:22→18:00)
[2023-06-14] MEDS ORDERED: LACTULOSE 20 GM/30 ML CUP PO ONE (07:56)
[2023-06-14] MEDS: ENOXAPARIN 40 MG/0.4 ML SYRINGE SQ SCH (08:08)
[2023-06-14] MEDS: FLUTICASONE 50MCG/SPRAY NASAL 16GM EA NOSTRIL SCH (08:09)
[2023-06-14] MEDS: lisinopriL 10 MG TAB PO SCH (08:10)
[2023-06-14] MEDS: THIAMINE 100 MG TAB PO SCH (08:10)
[2023-06-14] MEDS: MULTIVITAMINS, THERA 1 EACH TAB PO SCH (08:10)
[2023-06-14] MEDS: NICOTINE 21MG/24HR PATCH TRANSDERM SCH (08:10)
--- NOTE | 2023-06-14 12:48 | P.PN ---
Subjective Progress Note Date: 06/14/23 * 53-year-old patient with past medical history significant for hypertension, controlled emergency department with complaints of chest pain. Patient has history of alcohol use and was trying to get checked in [place] however patient was not excepted there. Upon admission patient mentioned that she had been recently at another hospital with complaints of chest pain and had a workup done which was normal. Per chart review, patient essentially homeless. * Patient does have history of alcohol use patient states she had last drink about 48 hours prior to presentation * Workup initiated ER included EKG which showed sinus rhythm, nonspecific ST segment changes were noted * Blood work obtained in ER included CBC which was essentially normal, INR 0.8 * Serum chemistry obtained showed sodium of 139 potassium 4.4 BUN 17 creatinine 0.79 glucose 165 * ALT of 35, AST of 25 troponin within normal limits * Patient to be admitted with consultation for cardiology to rule out ACS * 06/12/2023: Patient seen and evaluated bedside, patient remains chest pain- free, cardiology evaluated patient planning stress test, CRP 2.2, significant dyslipidemia noted troponin within normal limits * 06/13/2023: Patient seen and evaluated bedside, stress test completed patient cleared for discharge by cardiology. Patient had episode of nausea given Zofran. X-ray to be completed as well. service department manager coordinating discharge planning. For safe planning patient need to be transferred to facility/fpc. * 06/14/2023: Patient seen and evaluated bedside, x-ray KUB reviewed, patient was given Lactasol, abdominal distention has improved plan to transfer to fpc. Case management to assist in discharge planning. Patient was requesting prescription for [place]. Patient was explained she needs to follow-up with primary care provider REVIEW OF SYSTEMS: Chest pain resolved CONSTITUTIONAL: No fever, no malaise, no fatigue. HEENT: No recent visual problems or hearing problems. Denied any sore throat. CARDIOVASCULAR: No chest pain, orthopnea, PND, no palpitations, no syncope. PULMONARY: No shortness of breath, no cough, no hemoptysis. GASTROINTESTINAL: No diarrhea, no nausea, no vomiting, no abdominal pain. NEUROLOGICAL: No headaches, no weakness, no numbness. HEMATOLOGICAL: Denies any bleeding or petechiae. GENITOURINARY: Denies any burning micturition, frequency, or urgency. MUSCULOSKELETAL/RHEUMATOLOGICAL: Denies any joint pain, swelling, or any muscle pain. ENDOCRINE: Denies any polyuria or polydipsia. PHYSICAL EXAMINATION: GENERAL: The patient is alert and oriented x3, not in any acute distress. Well developed, well nourished. HEENT: legally blind No scleral icterus. CARDIOVASCULAR: S1 and S2 present. No murmurs, rubs, or gallops. PULMONARY: Chest is clear to auscultation, no wheezing or crackles. ABDOMEN: Soft, nontender, nondistended, normoactive bowel sounds. No palpable organomegaly. MUSCULOSKELETAL: No joint swelling or deformity. EXTREMITIES: No cyanosis, clubbing, or pedal edema. NEUROLOGICAL: Gross neurological examination did not reveal any focal deficits. SKIN: No rashes. Objective - Vital Signs Vital signs: Vital Signs Temp 97.8 F 06/14/23 07:00 Pulse 59 L 06/14/23 07:00 Resp 16 06/14/23 07:00 BP 115/66 06/14/23 07:00 Pulse Ox 100 06/14/23 07:00 FiO2 Intake & Output 06/13/23 06/14/23 06/14/23 18:59 06:59 18:59 Intake Total 236 240 Balance 236 240 Intake: Oral 236 240 Other: Voiding Method Toilet Toilet Toilet # Voids 2 2 2 # Bowel Movements 1 - Labs CBC & Chem 7: 06/11/23 01:57 06/13/23 03:11 Assessment and Plan Assessment: Assessment and plan * Chest pain ruled out acute coronary syndrome * Hypertension * Alcohol use disorder * History of bipolar disorder * Legally blind * In regards to chest pain, serial troponins negative, stress test negative * In regards to history of hypertension, continue lisinopril * In regards to history of alcohol use disorder, was treated for withdrawal while inpatient counseled * Appreciate input from cardiology, social work/case management consulted * Discharged to [facility]/safe facility patient is homeless, case management to arrange transport
[2023-06-14] MEDS: ONDANSETRON 4 MG/2 ML VIAL IVP PRN (16:48)
[2023-06-14] MEDS: ATORVASTATIN 40 MG TAB PO SCH (19:59)
[2023-06-15] MEDS: HYDROcodone/APAP 5-325MG 1 EACH TAB PO PRN ×4 (01:11→19:43)
[2023-06-15] MEDS: ONDANSETRON 4 MG/2 ML VIAL IVP PRN ×3 (02:45→19:44)
[2023-06-15] MEDS: SODIUM CHLORIDE 0.9% 1,000 ML IV SCH ×2 (05:34→19:37)
[2023-06-15] MEDS: MULTIVITAMINS, THERA 1 EACH TAB PO SCH (09:49)
[2023-06-15] MEDS: NICOTINE 21MG/24HR PATCH TRANSDERM SCH (09:49)
[2023-06-15] MEDS: lisinopriL 10 MG TAB PO SCH (09:49)
[2023-06-15] MEDS: THIAMINE 100 MG TAB PO SCH (09:49)
[2023-06-15] MEDS: FLUTICASONE 50MCG/SPRAY NASAL 16GM EA NOSTRIL SCH (09:50)
[2023-06-15] MEDS: ENOXAPARIN 40 MG/0.4 ML SYRINGE SQ SCH (09:50)
[2023-06-15] MEDS: MORPHINE SULFATE 2 MG/ML SYRINGE IVP PRN ×2 (09:59→21:58)
--- NOTE | 2023-06-15 14:44 | P.PN ---
Subjective Progress Note Date: 06/15/23 * 53-year-old patient with past medical history significant for hypertension, controlled emergency department with complaints of chest pain. Patient has history of alcohol use and was trying to get checked in [place] however patient was not excepted there. Upon admission patient mentioned that she had been recently at another hospital with complaints of chest pain and had a workup done which was normal. Per chart review, patient essentially homeless. * Patient does have history of alcohol use patient states she had last drink about 48 hours prior to presentation * Workup initiated ER included EKG which showed sinus rhythm, nonspecific ST segment changes were noted * Blood work obtained in ER included CBC which was essentially normal, INR 0.8 * Serum chemistry obtained showed sodium of 139 potassium 4.4 BUN 17 creatinine 0.79 glucose 165 * ALT of 35, AST of 25 troponin within normal limits * Patient to be admitted with consultation for cardiology to rule out ACS * 06/12/2023: Patient seen and evaluated bedside, patient remains chest pain- free, cardiology evaluated patient planning stress test, CRP 2.2, significant dyslipidemia noted troponin within normal limits * 06/13/2023: Patient seen and evaluated bedside, stress test completed patient cleared for discharge by cardiology. Patient had episode of nausea given Zofran. X-ray to be completed as well. fleet service manager coordinating discharge planning. For safe planning patient need to be transferred to facility/group home. * 06/14/2023: Patient seen and evaluated bedside, x-ray KUB reviewed, patient was given Lactasol, abdominal distention has improved plan to transfer to group home. Case management to assist in discharge planning. Patient was requesting prescription for [place]. Patient was explained she needs to follow-up with primary care provider * 06/15/2023: Patient seen and evaluated bedside, during evaluation patient is awake and alert patient unable to go to group home until Saturday to REVIEW OF SYSTEMS: Chest pain resolved, nausea, abdominal distention CONSTITUTIONAL: No fever, no malaise, no fatigue. HEENT: No recent visual problems or hearing problems. Denied any sore throat. CARDIOVASCULAR: No chest pain, orthopnea, PND, no palpitations, no syncope. PULMONARY: No shortness of breath, no cough, no hemoptysis. GASTROINTESTINAL:Chest pain resolved, nausea, abdominal distention NEUROLOGICAL: No headaches, no weakness, no numbness. HEMATOLOGICAL: Denies any bleeding or petechiae. GENITOURINARY: Denies any burning micturition, frequency, or urgency. MUSCULOSKELETAL/RHEUMATOLOGICAL: Denies any joint pain, swelling, or any muscle pain. ENDOCRINE: Denies any polyuria or polydipsia. PHYSICAL EXAMINATION: GENERAL: The patient is alert and oriented x3, not in any acute distress. Well developed, well nourished. HEENT: legally blind No scleral icterus. CARDIOVASCULAR: S1 and S2 present. No murmurs, rubs, or gallops. PULMONARY: Chest is clear to auscultation, no wheezing or crackles. ABDOMEN: Soft, nontender, nondistended, normoactive bowel sounds. No palpable organomegaly. MUSCULOSKELETAL: No joint swelling or deformity. EXTREMITIES: No cyanosis, clubbing, or pedal edema. NEUROLOGICAL: Gross neurological examination did not reveal any focal deficits. SKIN: No rashes. Objective - Vital Signs Vital signs: Vital Signs Temp 97.6 F 06/15/23 07:00 Pulse 64 06/15/23 07:00 Resp 18 06/15/23 07:00 BP 142/97 06/15/23 07:00 Pulse Ox 100 06/15/23 07:00 FiO2 Intake & Output 06/14/23 06/15/23 06/15/23 18:59 06:59 18:59 Intake Total 480 120 Balance 480 120 Intake: Oral 480 120 Other: Voiding Method Toilet Toilet # Voids 1 1 1 # Bowel Movements 1 - Labs CBC & Chem 7: 06/11/23 01:57 06/13/23 03:11 Assessment and Plan Assessment: Assessment and plan * Chest pain ruled out acute coronary syndrome * Hypertension * Alcohol use disorder * History of bipolar disorder * Legally blind * In regards to chest pain, serial troponins negative, stress test negative * In regards to history of hypertension, continue lisinopril * In regards to history of alcohol use disorder, was treated for withdrawal while inpatient counseled * Appreciate input from cardiology, social work/case management consulted * Discharged to group home/safe facility patient is homeless, case management to arrange transport , unable to leave through the weekend
[2023-06-15] MEDS: polyethylene glycoL 3350 17 GM POWD.PACK PO SCH (15:27)
[2023-06-15] MEDS: SIMETHICONE 80 MG CHEWABLE PO SCH ×3 (15:27→21:59)
[2023-06-15] MEDS: ATORVASTATIN 40 MG TAB PO SCH (19:44)
[2023-06-16] MEDS: HYDROcodone/APAP 5-325MG 1 EACH TAB PO PRN ×5 (00:50→20:34)
[2023-06-16] MEDS: MORPHINE SULFATE 2 MG/ML SYRINGE IVP PRN (06:15)
[2023-06-16] MEDS: NICOTINE 21MG/24HR PATCH TRANSDERM SCH (09:44)
[2023-06-16] MEDS: MULTIVITAMINS, THERA 1 EACH TAB PO SCH (09:45)
[2023-06-16] MEDS: lisinopriL 10 MG TAB PO SCH (09:45)
[2023-06-16] MEDS: polyethylene glycoL 3350 17 GM POWD.PACK PO SCH (09:45)
[2023-06-16] MEDS: THIAMINE 100 MG TAB PO SCH (09:45)
[2023-06-16] MEDS: SIMETHICONE 80 MG CHEWABLE PO SCH ×4 (09:45→20:34)
[2023-06-16] MEDS: SODIUM CHLORIDE 0.9% 1,000 ML IV SCH ×2 (09:48→23:58)
[2023-06-16] MEDS: FLUTICASONE 50MCG/SPRAY NASAL 16GM EA NOSTRIL SCH (09:48)
[2023-06-16] MEDS: ENOXAPARIN 40 MG/0.4 ML SYRINGE SQ SCH (09:48)
[2023-06-16 10:24] LABS: Blood Urea Nitrogen 10.9 mg/dL (9.0-27.0); Calcium 9.3 mg/dL (8.7-10.3); Carbon Dioxide 26.5 mmol/L (21.6-31.8); Chloride 106 mmol/L (96-109); Glucose 101 mg/dL (70-110); Potassium 4.7 mmol/L (3.5-5.5); Sodium 140 mmol/L (135-145)
--- NOTE | 2023-06-16 12:55 | P.PN ---
Subjective Progress Note Date: 06/16/23 * 53-year-old patient with past medical history significant for hypertension, controlled emergency department with complaints of chest pain. Patient has history of alcohol use and was trying to get checked in [place] however patient was not excepted there. Upon admission patient mentioned that she had been recently at another hospital with complaints of chest pain and had a workup done which was normal. Per chart review, patient essentially homeless. * Patient does have history of alcohol use patient states she had last drink about 48 hours prior to presentation * Workup initiated ER included EKG which showed sinus rhythm, nonspecific ST segment changes were noted * Blood work obtained in ER included CBC which was essentially normal, INR 0.8 * Serum chemistry obtained showed sodium of 139 potassium 4.4 BUN 17 creatinine 0.79 glucose 165 * ALT of 35, AST of 25 troponin within normal limits * Patient to be admitted with consultation for cardiology to rule out ACS * 06/12/2023: Patient seen and evaluated bedside, patient remains chest pain- free, cardiology evaluated patient planning stress test, CRP 2.2, significant dyslipidemia noted troponin within normal limits * 06/13/2023: Patient seen and evaluated bedside, stress test completed patient cleared for discharge by cardiology. Patient had episode of nausea given Zofran. X-ray to be completed as well. catering and events manager coordinating discharge planning. For safe planning patient need to be transferred to facility/[facility]. * 06/14/2023: Patient seen and evaluated bedside, x-ray KUB reviewed, patient was given Lactasol, abdominal distention has improved plan to transfer to [facility]. Case management to assist in discharge planning. Patient was requesting prescription for [place]. Patient was explained she needs to follow-up with primary care provider * 06/15/2023: Patient seen and evaluated bedside, during evaluation patient is awake and alert patient unable to go to [facility] until Saturday to * 06/16/2023: patient seen and evaluated bedside. Patient waiting to be transferred to [facility]. Patient does complain of intermittent nausea, con tinue on bowel regimen denies vomiting. No significant overnight events REVIEW OF SYSTEMS: Chest pain resolved, nausea, abdominal distention IMPROVED CONSTITUTIONAL: No fever, no malaise, no fatigue. HEENT: No recent visual problems or hearing problems. Denied any sore throat. CARDIOVASCULAR: No chest pain, orthopnea, PND, no palpitations, no syncope. PULMONARY: No shortness of breath, no cough, no hemoptysis. GASTROINTESTINAL:Chest pain resolved, nausea, abdominal distention IMPROVED NEUROLOGICAL: No headaches, no weakness, no numbness. HEMATOLOGICAL: Denies any bleeding or petechiae. GENITOURINARY: Denies any burning micturition, frequency, or urgency. MUSCULOSKELETAL/RHEUMATOLOGICAL: Denies any joint pain, swelling, or any muscle pain. ENDOCRINE: Denies any polyuria or polydipsia. PHYSICAL EXAMINATION: GENERAL: The patient is alert and oriented x3, not in any acute distress. Well developed, well nourished. HEENT: legally blind No scleral icterus. CARDIOVASCULAR: S1 and S2 present. No murmurs, rubs, or gallops. PULMONARY: Chest is clear to auscultation, no wheezing or crackles. ABDOMEN: Soft, nontender, nondistended, normoactive bowel sounds. No palpable organomegaly. MUSCULOSKELETAL: No joint swelling or deformity. EXTREMITIES: No cyanosis, clubbing, or pedal edema. NEUROLOGICAL: Gross neurological examination did not reveal any focal deficits. SKIN: No rashes. Objective - Vital Signs Vital signs: Vital Signs Temp 97.6 F 06/15/23 19:35 Pulse 56 L 06/15/23 19:35 Resp 16 06/15/23 19:35 BP 156/83 06/15/23 19:35 Pulse Ox 100 06/15/23 19:35 FiO2 Intake & Output 06/15/23 06/15/23 06/16/23 06:59 18:59 06:59 Intake Total 360 Balance 360 Intake: Oral 360 Other: Voiding Method Toilet Toilet # Voids 1 2 - Labs CBC & Chem 7: 06/11/23 01:57 06/16/23 05:58 Assessment and Plan Assessment: Assessment and plan * Chest pain ruled out acute coronary syndrome * Hypertension * Alcohol use disorder * History of bipolar disorder * Legally blind * In regards to chest pain, serial troponins negative, stress test negative * In regards to history of hypertension, continue lisinopril * In regards to history of alcohol use disorder, was treated for withdrawal while inpatient counseled * Appreciate input from cardiology, social work/case management consulted * Discharged to [facility]/safe facility patient is homeless, case management to arrange transport , unable to leave through the weekend
[2023-06-16] MEDS: ONDANSETRON 4 MG/2 ML VIAL IVP PRN (15:27)
[2023-06-16] MEDS: ATORVASTATIN 40 MG TAB PO SCH (20:35)
[2023-06-17] MEDS: ONDANSETRON 4 MG/2 ML VIAL IVP PRN (01:19)
[2023-06-17] MEDS: HYDROcodone/APAP 5-325MG 1 EACH TAB PO PRN ×2 (01:20→06:14)
[2023-06-17 08:49] VITALS: BP 112/75; PULSE 71; RESP 12; TEMP 98.3
[2023-06-17] MEDS: MULTIVITAMINS, THERA 1 EACH TAB PO SCH ×2 (09:02→09:04)
[2023-06-17] MEDS: NICOTINE 21MG/24HR PATCH TRANSDERM SCH (09:02)
[2023-06-17] MEDS: polyethylene glycoL 3350 17 GM POWD.PACK PO SCH (09:02)
[2023-06-17] MEDS: SIMETHICONE 80 MG CHEWABLE PO SCH ×2 (09:02→12:05)
[2023-06-17] MEDS: lisinopriL 10 MG TAB PO SCH (09:02)
[2023-06-17] MEDS: FLUTICASONE 50MCG/SPRAY NASAL 16GM EA NOSTRIL SCH (09:02)
[2023-06-17] MEDS: ENOXAPARIN 40 MG/0.4 ML SYRINGE SQ SCH ×2 (09:02→09:05)
[2023-06-17] MEDS: THIAMINE 100 MG TAB PO SCH ×2 (09:02→09:05)
[2023-06-17] MEDS: SODIUM CHLORIDE 0.9% 1,000 ML IV SCH (10:59)
--- NOTE | 2023-06-17 12:20 | P.PN ---
Progress Note - Text Progress Note Date: 06/17/23 Patient will require a walker on discharge as patient has mobility limitation that significantly impairs the ability to participate in MRADLs in the home. 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 Prescription provided to case management/social work for discharge planning.
--- NOTE | 2023-06-17 13:20 | P.DS ---
Providers Date of admission: 06/10/23 22:28 Expected date of discharge: 06/17/23 Attending physician: Melchor Arita Primary care physician: Stated None Hospital Course: * 53-year-old patient with past medical history significant for hypertension, controlled emergency department with complaints of chest pain. Patient has history of alcohol use and was trying to get checked in [place] however patient was not excepted there. Upon admission patient mentioned that she had been recently at another hospital with complaints of chest pain and had a workup done which was normal. Per chart review, patient essentially homeless. * Patient does have history of alcohol use patient states she had last drink about 48 hours prior to presentation * Workup initiated ER included EKG which showed sinus rhythm, nonspecific ST segment changes were noted * Blood work obtained in ER included CBC which was essentially normal, INR 0.8 * Serum chemistry obtained showed sodium of 139 potassium 4.4 BUN 17 creatinine 0.79 glucose 165 * ALT of 35, AST of 25 troponin within normal limits * Patient to be admitted with consultation for cardiology to rule out ACS * 06/12/2023: Patient seen and evaluated bedside, patient remains chest pain- free, cardiology evaluated patient planning stress test, CRP 2.2, significant dyslipidemia noted troponin within normal limits * 06/13/2023: Patient seen and evaluated bedside, stress test completed patient cleared for discharge by cardiology. Patient had episode of nausea given Zofran. X-ray to be completed as well. contact center manager coordinating discharge planning. For safe planning patient need to be transferred to [facility]. * 06/14/2023: Patient seen and evaluated bedside, x-ray KUB reviewed, patient was given Lactasol, abdominal distention has improved plan to transfer to [facility]. Case management to assist in discharge planning. Patient was requesting prescription for [place]. Patient was explained she needs to follow-up with primary care provider * 06/15/2023: Patient seen and evaluated bedside, during evaluation patient is awake and alert patient unable to go to [facility] until Saturday to * 06/16/2023: patient seen and evaluated bedside. Patient waiting to be transferred to [facility]. Patient does complain of intermittent nausea, continue on bowel regimen denies vomiting. No significant overnight events * 06/17/2023: Patient seen and evaluated bedside, patient to be discharged to a hotel, information provided, safety plan discussed. Patient unable to go back to [facility]. Social work helping with transport. Patient is in agreement all belongings provided to patient. Home medications discussed with patient patient explained that [place] prescription cannot be provided she would need to follow-up with an outpatient provider REVIEW OF SYSTEMS: Chest pain resolved, nausea, abdominal distention IMPROVED CONSTITUTIONAL: No fever, no malaise, no fatigue. HEENT: No recent visual problems or hearing problems. Denied any sore throat. CARDIOVASCULAR: No chest pain, orthopnea, PND, no palpitations, no syncope. PULMONARY: No shortness of breath, no cough, no hemoptysis. GASTROINTESTINAL:Chest pain resolved, nausea, abdominal distention IMPROVED NEUROLOGICAL: No headaches, no weakness, no numbness. HEMATOLOGICAL: Denies any bleeding or petechiae. GENITOURINARY: Denies any burning micturition, frequency, or urgency. MUSCULOSKELETAL/RHEUMATOLOGICAL: Denies any joint pain, swelling, or any muscle pain. ENDOCRINE: Denies any polyuria or polydipsia. PHYSICAL EXAMINATION: GENERAL: The patient is alert and oriented x3, not in any acute distress. Well developed, well nourished. HEENT: legally blind No scleral icterus. CARDIOVASCULAR: S1 and S2 present. No murmurs, rubs, or gallops. PULMONARY: Chest is clear to auscultation, no wheezing or crackles. ABDOMEN: Soft, nontender, nondistended, normoactive bowel sounds. No palpable organomegaly. MUSCULOSKELETAL: No joint swelling or deformity. EXTREMITIES: No cyanosis, clubbing, or pedal edema. NEUROLOGICAL: Gross neurological examination did not reveal any focal deficits. SKIN: No rashes. Assessment and plan * Chest pain ruled out acute coronary syndrome * Hypertension * Alcohol use disorder * History of bipolar disorder * Legally blind * In regards to chest pain, serial troponins negative, stress test negative * In regards to history of hypertension, continue lisinopril * In regards to history of alcohol use disorder, was treated for withdrawal while inpatient counseled * Appreciate input from cardiology, social work/case management consulted * Discharged to hotel/safe facility patient is homeless, case management to arrange transport discharge to hotel, patient in agreement, [facility] in [place] refusing to take the patient Patient Condition at Discharge: Fair Plan - Discharge Summary New Discharge Prescriptions: Continue Cyclobenzaprine [Flexeril] 10 mg PO BID PRN PRN Reason: Muscle Spasm Albuterol Sulfate [Ventolin HFA] 1 - 2 puff INHALATION RT-Q6H PRN PRN Reason: Shortness Of Breath Acetaminophen Tab [Tylenol] 5 mg PO QID PRN PRN Reason: Pain lisinopriL [Zestril] 10 mg PO DAILY Fluticasone Nasal [place] [Flonase Nasal [place]] 2 spray EA NOSTRIL DAILY HYDROcodone/APAP 5-325MG [[place] 5-325] 1 tab PO BID PRN PRN Reason: Pain Ergocalciferol [Vitamin D2 (1250 Mcg = 25876 Iu)] 1,250 mcg PO Q7D [place]/APAP/Caf/Cod 26-130-12-30 [Fioricet w/Cod 69-273-03-30MG] 1 cap PO QID PRN PRN Reason: Migraine Headache Discharge Medication List Acetaminophen Tab [Tylenol] 5 mg PO QID PRN 06/11/23 [History] Albuterol Sulfate [Ventolin HFA] 1 - 2 puff INHALATION RT-Q6H PRN 06/11/23 [History] [place]/APAP/Caf/Cod 81-410-40-30 [Fioricet w/Cod 57-394-63-30MG] 1 cap PO QID PRN 06/11/23 [History] Cyclobenzaprine [Flexeril] 10 mg PO BID PRN 06/11/23 [History] Ergocalciferol [Vitamin D2 (1250 Mcg = 26663 Iu)] 1,250 mcg PO Q7D 06/11/23 [History] Fluticasone Nasal [place] [Flonase Nasal [place]] 2 spray EA NOSTRIL DAILY 06/11/23 [History] HYDROcodone/APAP 5-325MG [[place] 5-325] 1 tab PO BID PRN 06/11/23 [History] lisinopriL [Zestril] 10 mg PO DAILY 06/11/23 [History] Follow up Appointment(s)/Referral(s): Nonstaff,Physician [REFERRING] - 1-2 days Discharge Disposition: HOME SELF-CARE
== END 2023-06-17 14:30 | disposition home or self-care (01) | DRG 198 ==
LOC: EC 17:10 → 3SCARD 22:27 → OBSVTOIN 22:28 → 6NMEDSUR 06-11 06:06
PROVIDERS: ADMIT Hospitalist; ATTEND Hospitalist
DX: R07.9 Chest pain, unspecified (principal); F17.210 Nicotine dependence, cigarettes, uncomplicated; F20.9 Schizophrenia, unspecified; F31.9 Bipolar disorder, unspecified; H54.8 Legal blindness, as defined in USA; Z59.01 Sheltered homelessness; R11.0 Nausea; K21.9 Gastro-esophageal reflux disease without esophagitis; Z99.3 Dependence on wheelchair; R53.81 Other malaise; Z71.41 Alcohol abuse counseling and surveillance of alcoholic; F10.139 Alcohol abuse with withdrawal, unspecified; I10 Essential (primary) hypertension; I25.2 Old myocardial infarction; Z79.899 Other long term (current) drug therapy; Z28.311 Partially vaccinated for COVID-19; Z75.1 Person awaiting admission to adequate facility elsewhere
CPT/HCPCS: 36415; 71046; 74018; 80048; 80053; 80061; 83735; 84484; 85025; 85610; 85652; 85730; 86140; 93005; 93306; 93351; 96361; 96365; 96366; 96372; 96375; 96376; 99285